=== PATIENT | female | born 1995 | race Caucasian/White ===

== ENCOUNTER 2016-12-10 16:45 | Emergency (ER) | payer MEDICAID ==
[~2016-12-10 16:45] MED LIST: ALBUTEROL17 GM; ALBUTEROL17 GM INH; AMOXICILLIN; AMOXICILLIN PO; AMOXIL875 MG PO; AUGMENTIN PO; BACTRIM DS TABL1 TA1 PO; BENADRYL; BENADRYL IV; BENADRYL PO; BENZONATATE PO; CONCERTA PO; CONCERTA36 MG PO; CORTISPORIN-TC10 ML OT; DEPO-PROVE150 MG/1 M; DIFLUCAN PO; EFFEXOR XR PO; ELIMITE60 GM TOP; ERYTHROMYCIN O3.5 GM OD; ERYTHROMYCIN OD; FLONASE16 GM; FOCALIN5 MG; IBUPROFEN PO; IBUPROFEN600 MG PO; IBUPROFEN800 MG PO; KEFLEX PO; LAMICTAL PO; LOTRIMIN 1% CR30 GM EXT; MACROBID100 MG PO; MEDROL PO; MELATONIN; MELATONIN3 MG PO; MELATONIN5 M1 PO; MIRALAX255 GM PO; MOTRIN400 MG PO; MUCINEX; NAPROXEN PO; NYQUIL; PHENERGAN/CODEIN5 ML PO; PREDNISONE PO; PRENATAL1 TA1; PYRIDIUM100 MG PO; ROBITUSSIN A-C-S1 ML PO; RYNATAN PEDIAT473 ML PO; SEROQUEL; SEROQUEL PO; SUDAFED PO; TESSALON200 MG PO; TRAZODONE PO; TRILEPTAL; TRILEPTAL PO; TYLENOL WITH CODEINE PO; ULTRAM PO; VOLTAREN75 MG PO; VYVANSE30 MG PO; ZITHROMAX PO; ZOFRAN ODT4 MG PO; ZYRTEC PO
[2016-12-10 17:03] LABS: BASOPHIL# 0.1 X10e3 (0-0.3); BASOPHIL% 0.8 % (0-2.5); EOSINOPHIL# 0.1 X10e3 (0-0.7); HEMOGLOBIN 13.7 gm/dL (12.0-16.0); LYMPHOCYTE# 2.8 X10e3 (1.0-3.5); LYMPHOCYTE% 35.8 % (17.0-45.0); MEAN CELL VOLUME 85.7 FL (83-96); MEAN CORPUSCULAR HEMOGLOBIN 28.6 PG (28-34); MEAN CORPUSCULAR HGB CONC 33.4 g/dL (30-36); MEAN PLATELET VOLUME 7.9 FL (6.5-11.5); MONOCYTE# 0.6 X10e3 (0-1.0); MONOCYTE% 7.7 % (3.0-12.0); NEUTROPHIL# 4.4 X10e3 (1.5-7.1); NEUTROPHIL% 54.7 % (40-75); PLATELET COUNT 369 X10e3 (140-420); RED BLOOD COUNT 4.78 X10e (3.90-5.30); RED CELL DISTRIBUTION WIDTH 14.3 % (11.0-15.5)
[2016-12-10 17:04] LABS: DIFF IND NO
[2016-12-10 17:13] LABS: INR 1.2
[2016-12-10 17:20] LABS: PARTIAL THROMBOPLASTIN TIME 30.6 SECONDS (25.6-38.1)
[2016-12-10 17:21] LABS: CALCIUM SERUM 9.2 mg/dL (8.4-10.2); CREATININE SERUM 0.8 mg/dL (0.6-1.4); GLOM FILT RATE Estimated 105.5 mL/min (>60); POTASSIUM 3.1 mmol/L (3.5-5.1)
== END 2016-12-10 18:55 | disposition home or self-care (01) ==
LOC: SED 16:45
PROVIDERS: Emergency Medicine
DX: N92.1 Excessive and frequent menstruation with irregular cycle (principal); E87.6 Hypokalemia; F90.9 Attention-deficit hyperactivity disorder, unspecified type
CPT/HCPCS: 36415; 80048; 85025; 85610; 85730; 96361; 96374; 96375; 99284; J2270; J2405

== ENCOUNTER 2017-01-12 01:48 | Emergency (ER) | payer MEDICAID ==
[2017-01-12 02:37] LABS: URINE SOURCE CLEAN CATCH
[2017-01-12 02:43] LABS: URINE APPEARANCE CLOUDY; URINE BILIRUBIN NEG (NEG); URINE BLOOD 3+ (NEG); URINE COLOR YELLOW; URINE GLUCOSE NEG (NEG); URINE KETONE NEG (NEG); URINE LEUKOCYTE ESTERASE 3+ (NEG); URINE NITRATE POS (NEG); URINE PH 5.5 (5-8); URINE PROTEIN 2+ (NEG); URINE SPECIFIC GRAVITY 1.016 (1.003-1.035)
[2017-01-12 02:45] LABS: CULTURE INDICATED? YES; URBCS1 AUWI 25-50 /[HPF] (0-2); URINE BACTERIA AUWI 4+ (NEGATIVE); URINE SQUAMOUS EPITHELIAL CELL FEW /[HPF]; UWBCS1 AUWI INNUM (0-5)
[2017-01-12 03:51] LABS: BASOPHIL% 0.2 % (0-2.5); DIFF IND NO; EOSINOPHIL% 0.2 % (0.0-7.0); HEMATOCRIT 34.1 % (35.0-45.0); HEMOGLOBIN 10.8 gm/dL (12.0-16.0); LYMPHOCYTE# 0.9 X10e3 (1.0-3.5); LYMPHOCYTE% 7.5 % (17.0-45.0); MEAN CELL VOLUME 82.3 FL (83-96); MEAN CORPUSCULAR HEMOGLOBIN 26.1 PG (28-34); MEAN CORPUSCULAR HGB CONC 31.8 g/dL (30-36); MEAN PLATELET VOLUME 8.9 FL (6.5-11.5); MONOCYTE# 1.5 X10e3 (0-1.0); MONOCYTE% 12.4 % (3.0-12.0); NEUTROPHIL# 9.5 X10e3 (1.5-7.1); NEUTROPHIL% 79.7 % (40-75); PLATELET COUNT 254 X10e3 (140-420); RED BLOOD COUNT 4.15 X10e (3.90-5.30); RED CELL DISTRIBUTION WIDTH 13.3 % (11.0-15.5); WHITE BLOOD COUNT 11.9 X10e3 (4.0-10.5)
[2017-01-12 04:22] LABS: ALBUMIN SERUM 3.6 g/dL (3.5-5.0); BILIRUBIN, DIRECT 0.2 mg/dL (0.0-0.2); BILIRUBIN,INDIRECT 0.9 mg/dL (0.0-0.9); BILIRUBIN,TOTAL 1.1 mg/dL (0.2-2.0); BUN/CREATININE RATIO 11.66; CALCIUM SERUM 8.9 mg/dL (8.4-10.2); CREATININE SERUM 0.6 mg/dL (0.6-1.4); GLOM FILT RATE Estimated 130.3 mL/min (>60); PROTEIN TOTAL SERUM 7.1 g/dL (6.0-8.3)
[2017-01-12 04:26] LABS: POTASSIUM 2.9 mmol/L (3.5-5.1)
== END 2017-01-12 04:50 | disposition home or self-care (01) ==
LOC: CED 01:48
PROVIDERS: Physician Assistant
DX: N10 Acute pyelonephritis (principal); N30.00 Acute cystitis without hematuria; F17.210 Nicotine dependence, cigarettes, uncomplicated; Z79.899 Other long term (current) drug therapy; Z88.2 Allergy status to sulfonamides; Z88.1 Allergy status to other antibiotic agents; Z91.030 Bee allergy status
CPT/HCPCS: 36415; 80048; 80076; 81003; 83690; 84703; 85025; 87086; 87088; 87186; 96361; 96365; 96375; 99283; J0696; J1885